=== PATIENT | female | born 1950 | race Caucasian/White ===

== ENCOUNTER 2020-11-26 08:47 | Inpatient (IN) | payer OTHER ==
[~2020-11-26] VITALS: Ht 160 cm; Wt 99.8 kg
[~2020-11-26 08:47] MED LIST: ALBUTEROL1.25 MG/3; ALBUTEROL2.5 MG/3 M IH; ALLEGRA-D1 TAB.SR1 PO; AMOX TR-K1 TAB.CHE2; AYR SALINE50 ML NS; BENZONATATE200 M1 PO; CALCIUM600 MG PO; CATAFLAM50 MG PO; EVISTA60 MG PO; FAMOTIDINE20 MG PO; IPRATROPIU0.2 MG/1 M IH; MEDROLPACK PO; MILLIPRED5 MG PO; MONTELUKAST SOD10 MG PO; NABUMETONE500 MG PO; PERCOCET 5/3251 TAB PO; PREDNISONE10 MG PO; PRILOSEC20 MG PO; SINGULAIR10 MG; ULTRACET PO; VITAMIN D10000 UNIT PO
--- NOTE | 2020-11-26 09:27 | NUR ---
PTE LLEGA CON ASMA Y DIF AL RESPIRAR. SE LE HARLEY S/V LA CUAL SE DOCUMENTA. PTE REFIERE QUE SE COMENZO CON TERAPIA RESPIRATORIA EN EL HOGAR. SE ACOMODA EN ASMA UNID.
--- NOTE | 2020-11-26 10:16 | NUR ---
PACIENTE EVALUADA POR DRA. YANG QUIEN ORDENA TRATAMIENTO. RN. Godinez MORGAN EDUCA A PTE SOBRE ORDENES MEDICAS Y REFIERE COMPRENDER. CANALIZA Y COLECTA MUESTRAS DE LABORATORIO BAJO MEDIDAS ASEPTICAS Y ADMINISTRA MEDICAMENTOS DAWOOD ORDEN MEDICA LOS CUALES PTE AL MOMENTO NO PRESENTA REACCION ADVERSA. PERSONAL DE TERAPIA RESPIRATORIA MADDIE TRATAMIENTO A PTE.
--- NOTE | 2020-11-26 12:48 | NUR ---
SE NOTIFICA A MS. SHAVER PEAK FLOW PENDIENTE.
--- NOTE | 2020-11-26 15:11 | NUR ---
PTE ALERTA Y ORIENTADA X 3 ESFERAS EN BUTACA EN AREA DE AU EN COMPANIA DE FAMILIAR,AREA DE VENOPUNCION PATENTE Y SAUMYA DE EDEMA,NO PRESNETA DIFICULTAD RESP AL MOMENTO CON CANULA NASAL,PENDIENTE A RE-EVALUACION.
--- NOTE | 2020-11-26 15:41 | NUR ---
SE MADDIE SEGUIMIENTO CON PERSONAL DE TERAPIA RESPIRATORIA PARA ORDEN DE PEAKFLOW A .
[2020-12-05] MEDS ORDERED: MEDROLPACK PO (18:11)
== END 2020-12-06 07:39 | disposition home or self-care (01) | DRG 203 ==
LOC: ER 08:47 → MEDI 20:28
PROVIDERS: ADMIT Internal Medicine; ATTEND Internal Medicine
PROC: B24BZZZ Ultrasonography of Heart with Aorta (ICD-10-PCS; principal; 2020-11-26)
PROC: 4A033R1 Measurement of Arterial Saturation, Peripheral, Percutaneous Approach (ICD-10-PCS; 2020-11-26)
PROC: 3E0F7SF Introduction of Other Gas into Respiratory Tract, Via Natural or Artificial Opening (ICD-10-PCS; 2020-11-26)
DX: J45.41 Moderate persistent asthma with (acute) exacerbation (principal); R09.02 Hypoxemia; J22 Unspecified acute lower respiratory infection; R06.02 Shortness of breath; I10 Essential (primary) hypertension; K21.9 Gastro-esophageal reflux disease without esophagitis; E66.01 Morbid (severe) obesity due to excess calories; Z20.822 Contact with and (suspected) exposure to COVID-19

== ENCOUNTER 2023-06-16 11:00 | Inpatient (IN) | payer OTHER ==
[~2023-06-16] VITALS: Ht 160 cm; Wt 92.5 kg
[2023-06-21 07:43] LABS: INR 0.97; PARTIAL THROMBOPLASTIN TIME 26.5 SECONDS (22.0-34.0); PROTHROMBIN TIME 10.2 SECONDS (9.0-11.5)
[2023-06-22 04:53] LABS: HEMOGLOBIN 11.3 g/dL (12.0-15.00); MEAN CELL VOLUME 94.8 fL (80.00-100.00); MEAN CORPUSCULAR HEMOGLOBIN 32.5 pg (27.00-32.0); MEAN CORPUSCULAR HGB CONC 34.3 g/dl (32.0-36.0); PLATELET COUNT 151 K/uL (150-450); RED BLOOD COUNT 3.49 M/uL (4.00-6.00)
[2023-06-23 06:45] LABS: HEMATOCRIT 31.9 % (36.0-45.00); HEMOGLOBIN 11.1 g/dL (12.0-15.00); MEAN CELL VOLUME 93.5 fL (80.00-100.00); MEAN CORPUSCULAR HEMOGLOBIN 32.4 pg (27.00-32.0); MEAN CORPUSCULAR HGB CONC 34.7 g/dl (32.0-36.0); PLATELET COUNT 143 K/uL (150-450); RED BLOOD COUNT 3.42 M/uL (4.00-6.00); RED CELL DISTRIBUTION WIDTH 13.6 % (11.5-14.5)
== END 2023-06-23 18:13 | DRG 470 ==
LOC: SURG 06-21 06:14 → O/R 06-21 06:14 → SURG 06-21 09:45
PROVIDERS: ADMIT Orthopaedic Surgery; ATTEND Orthopaedic Surgery
PROC: 0SRC0JZ Replacement of Right Knee Joint with Synthetic Substitute, Open Approach (ICD-10-PCS; principal; 2023-06-21 09:45)
DX: M17.11 Unilateral primary osteoarthritis, right knee (principal); D62 Acute posthemorrhagic anemia; M85.661 Other cyst of bone, right lower leg; R26.89 Other abnormalities of gait and mobility

== ENCOUNTER 2025-06-23 13:34 | Emergency (ER) | payer OTHER ==
[~2025-06-23] VITALS: Ht 160 cm; Wt 94.3 kg
[2025-06-23] MEDS ORDERED: LIPITOR40 M1 (13:47)
[2025-06-23] MEDS ORDERED: FAMOTIDINE/PF 20 MG/2 ML VIAL IV PUSH STA (14:27)
[2025-06-23] MEDS ORDERED: LACTOBACILLUS ACIDOPHILUS 1 CAP CAP PO STA (14:27)
[2025-06-23] MEDS ORDERED: ONDANSETRON HCL 2 MG/ML VIAL IV STA (14:27)
[2025-06-23] MEDS ORDERED: RINGERS SOLUTION,LACTATED 1,000 ML IV STA (14:28)
[2025-06-23] MEDS ORDERED: LACTOBACILLUS ACIDOPHILUS 1 CAP CAP PO ONE (16:22)
[2025-06-23] MEDS ORDERED: ONDANSETRON HCL 2 MG/ML VIAL ONE (16:22)
[2025-06-23] MEDS ORDERED: FAMOTIDINE/PF 20 MG/2 ML VIAL ONE (16:22)
[2025-06-23 16:54] LABS: BASO % 0.1 % (0.1-1.2); EOS # 0.07 (0.04-0.54); EOS % 1.0 % (0.7-7.0); LYMPH # 0.20 (1.18-3.74); LYMPH % 2.7 % (19.3-53.1); MEAN PLATELET VOLUME 9.50 fl (9.4-12.4); MONO # 0.30 (0.24-0.82); MONO % 4.1 % (4.7-12.5); NEUT # 6.76 (1.56-6.13); NEUT % 92.0 % (34.0-71.1); RED CELL DISTRIBUTION WIDTH 13.3 % (11.6-14.4)
[2025-06-23 17:32] LABS: ALT/SGPT 30.0 U/L (12-78); AST/SGOT 22.0 U/L (15-37); BILIRUBIN TOTAL 0.79 mg/dL (0.3-1.2); BUN CREA RATIO 32.0 (7.0-25.0); CREATININE SERUM 0.62 mg/dL (0.55-1.02); GFR 94.35; GLOBULINA 3.3 G/DL (2.4-3.5); GLUCOSE FASTING 131.0 mg/dL (65-100); OSMOLALITY SERUM 291.0 MOSM/KG (275-295)
[2025-06-23 20:38] LABS: URINE APPEARANCE Clear; URINE BILIRRUBIN Negative (NEGATIVE); URINE BLOOD Small; URINE COLOR Dark Yellow; URINE GLUCOSE Negative (NEGATIVE); URINE KETONE 15 (NEGATIVE); URINE LEUKOCYTE Moderate; URINE NITRATE Negative; URINE PROTEIN 30 (NEGATIVE); URINE UROBILINOGEN 1.0 E.U./dl
[2025-06-23 20:41] LABS: URINE BACTERIA 7077.3 uL (0.0-1933); URINE EPITHELIAL CELLS 51.3 uL (0.0-38.8); URINE RBC 8.2 uL (0.0-20.8); URINE WBC 11.8 uL (0.0-23.2)
[2025-06-23 21:31] LABS: URINE CAST 0.58 uL (0.0-1.40); URINE MUCUS SCANT
[2025-06-23] MEDS ORDERED: PEPCID AC20 MG PO (21:42)
[2025-06-23] MEDS ORDERED: METOCLOPRAMIDE H5 MG PO (21:42)
[2025-06-23] MEDS ORDERED: BACTRIM DS TAB1 EACH PO (21:42)
[2025-06-23] MEDS ORDERED: PROBIOTIC1 EAC2 PO (21:42)
== END 2025-06-23 21:56 | disposition home or self-care (01) ==
LOC: ER 13:35
PROVIDERS: General Practice
DX: R19.7 Diarrhea, unspecified (principal); R11.10 Vomiting, unspecified; R11.2 Nausea with vomiting, unspecified
CPT/HCPCS: 36415; 74022; 96365; 99283; J2405; J3490